=== PATIENT | male | born 1990 | race African-American/Black ===

== ENCOUNTER 2016-05-06 22:39 | Emergency (ER) | payer OTHER ==
[~2016-05-06] VITALS: Ht 160 cm; Wt 70.0 kg
[2016-05-07 00:15] VITALS: BP 138/79
[2016-05-07] MEDS ORDERED: IBUPROFEN 600MG TABLET PO ONE (00:15)
[2016-05-07] MEDS ORDERED: TETANUS, DIPHTHERIA, PERTUSSIS VAC/PF 0.5ML (>7YR OLD) IM ONE (00:15)
== END 2016-05-07 00:26 | disposition home or self-care (01) ==
LOC: ER 22:57
DX: S81.811A Laceration without foreign body, right lower leg, initial encounter (principal); S61.210A Laceration without foreign body of right index finger without damage to nail, initial encounter; S80.812A Abrasion, left lower leg, initial encounter; W25.XXXA Contact with sharp glass, initial encounter; Y93.89 Activity, other specified; Y92.89 Other specified places as the place of occurrence of the external cause; Y99.8 Other external cause status
CPT/HCPCS: 90471; 90715; 99283; X7700; Z7610